=== PATIENT | female | born 1995 | race Two or more races ===

== ENCOUNTER 2022-08-31 21:31 | Emergency (ER) | payer OTHER ==
[~2022-08-31] VITALS: Ht 162.6 cm; Wt 185.0 kg
[2022-09-01 00:56] VITALS: BP 134/84
[2022-09-01] MEDS ORDERED: ACET-1158 PO (00:58)
[2022-09-01] MEDS ORDERED: ONDA-144 PO (00:58)
[2022-09-01 01:36] LABS: Urine Bacteria FEW /hpf (None Seen); Urine Blood Negative /uL (Negative); Urine Mucus FEW (None Seen); Urine Specific Gravity 1.022 (1.001-1.035); Urine WBC 3 /hpf (0 - 5)
[2022-09-01] MEDS ORDERED: NITR-52 PO (01:49)
== END 2022-09-01 01:53 | disposition home or self-care (01) ==
LOC: ER 21:33
DX: G44.209 Tension-type headache, unspecified, not intractable (principal); N39.0 Urinary tract infection, site not specified; Z20.822 Contact with and (suspected) exposure to COVID-19
CPT/HCPCS: 36415; 81001; 81025; 87426; 87804